=== PATIENT | female | born 1965 | race Caucasian/White ===

== ENCOUNTER → 2016-12-05 | Outpatient (CLI) | payer BC ==
--- NOTE | ~2016-12-05 | MY26 ---
[facility] A Service of [facility] RADIOLOGY TEXT RESULTS PATIENT: NANCY LYNN LOCATION: [facility] : 69 UNIT #: [id number] AGE: [address]: SUSAN SAUCEDO PA-C SEX: F ORDER DR: [id number] [place], [place] [address] [id number] O MR#: [id number] Acc #: [id number] NAME: NANCY LYNN : 1965 SEX: F STUDY DATE/TIME: 12/05/2016 14:46 UNIT: [facility] ROOM: STUDY DESCRIPTION: MY [facility] DIAGNOSTIC W/ CAD BILAT Attending Physician: Susan Saucedo Pa-C Ordering Physician: Caroline Logan Primary Care Physician: Hailey Olvera M.D. MEDICAL IMAGING REPORT This report is preliminary unless electronic signature is present EXAM Bilateral digital diagnostic mammogram INDICATIONS Palpable left breast lump for the past week PROCEDURE Bilateral CC and MLO views, left true lateral view and right XCCL view obtained on a digital mammography unit; FDA-approved CAD device utilized COMPARISON 03/23/2015 FINDINGS Scattered fibroglandular density. No dominant mass or suspicious calcification. Targeted ultrasound evaluation in the area of palpable concern at the 2 o'clock position left breast shows no sonographic abnormality. IMPRESSION Negative bilateral diagnostic mammogram and targeted left breast ultrasound. Recommend continued clinical followup. Patient's over the age of 40 are entered into a reminder system with target due date for the next mammogram. A result letter will be sent to the patient. BIRADS: 1 Negative Dictated by... Minh Nayak M.D. [facility] A Service of [facility] RADIOLOGY TEXT RESULTS PATIENT: NANCY LYNN LOCATION: [facility] : 69 UNIT #: [id number] AGE: [address]: SUSAN SAUCEDO PA-C SEX: F ORDER DR: THIS IS AN ELECTRONICALLY VERIFIED REPORT Minh Nayak M.D. at 12/08/2016 1:56 PM EED/martha TD: 12/05/2016 21:45 JOB #: [id number] MEDICAL IMAGING REPORT Page 1 of 1 COPY
--- NOTE | ~2016-12-05 | US24 ---
[facility] A Service of [facility] & [facility] RADIOLOGY TEXT RESULTS PATIENT: NANCY LYNN LOCATION: [facility] : 69 UNIT #: [id number] AGE: [address]: SUSAN SAUCEDO PA-C SEX: F ORDER DR: [id number] [facility] [address] [place], [place] [address] [id number] O MR#: [id number] Acc #: [id number] NAME: NANCY LYNN : 1965 SEX: F STUDY DATE/TIME: 12/05/2016 15:30 UNIT: [facility] ROOM: STUDY DESCRIPTION: US Breast Unilateral Attending Physician: Susan Saucedo Pa-C Ordering Physician: Physician Non-Staff Primary Care Physician: Hailey Olvera M.D. MEDICAL IMAGING REPORT This report is preliminary unless electronic signature is present EXAM Left breast ultrasound INDICATION Palpable left breast lump for the past week. PROCEDURE Reyna-scale imaging of the left breast at the 2 o'clock position. COMPARISON Concurrently performed diagnostic mammogram. FINDINGS/IMPRESSION Refer to the separately dictated diagnostic mammogram for workup, findings and recommendations. BIRADS: 1 Negative. Dictated by... Minh Nayak M.D. THIS IS AN ELECTRONICALLY VERIFIED REPORT Minh Nayak M.D. at 12/08/2016 1:56 PM DONNA/terrie TD: 12/05/2016 22:23 JOB #: [id number] MEDICAL IMAGING REPORT Page 1 of 1 COPY
== END | disposition home or self-care (01) ==
LOC: CWCC 14:25
DX: N63 Unspecified lump in breast (principal)
CPT/HCPCS: 76641; G0204